=== PATIENT | female | born 1980 | race Caucasian/White ===

== ENCOUNTER 2022-07-22 10:34 | Inpatient (IN) ==
[2022-07-22] MEDS ORDERED: SODIUM CHLORIDE 0.9% 1,000 ML IV STA (11:35)
[2022-07-22 11:47] LABS: Basophils # 0.1 10*3/uL (0.0-0.2); Basophils % 0.4 % (0.0-0.8); Eosinophils # 0.1 10*3/uL (0.0-0.87); Eosinophils % 0.4 % (0.00-10.9); Hematocrit 52.9 VOL% (35.7-47.0); Hemoglobin 17.7 GM/DL (12.0-16.0); Immature Granulocytes % 0.6 %; Immature Granulocytes Absolute 0.09 #; Lymphocytes # 0.3 10*3/uL (1.4-4.0); Lymphocytes % 1.9 % (21.3-54.2); Mean Corpuscular HGB Conc 33.5 GM/DL (32-36); Mean Corpuscular Volume 88.9 FL (87-102); Mean Platelet Volume 10.3 FL (9.6-12.0); Monocytes # 1.1 10*3/uL (0.11-0.8); Neutrophils % 89.7 % (38.7-73.9); Platelet Count 369 T/CUMM (130-400); Red Blood Count 5.95 MC/CUMM (3.8-5.5); Red Cell Distribution Width 13.4 % (9.3-17.3); White Blood Count 16.08 T/CUMM (4-12)
[2022-07-22 11:55] LABS: Alanine Aminotransferase 22 U/L (13-56); Albumin 4.5 G/DL (3.4-5.0); Alkaline Phosphatase 104 U/L (45-117); Aspartate Amino Transferase 19 U/L (0-37); Blood Urea Nitrogen 32 MG/DL (7-18); Calcium 9.8 MG/DL (8.5-10.1); Carbon Dioxide 17 MMOL/L (21-32); Chloride 109 MMOL/L (98-107); Glucose 150 MG/DL (74-106); Osmolality,Calculated 282.8 MOS/KG (273-304); Potassium 4.7 MMOL/L (3.5-5.1); Sodium 137 MMOL/L (136-145); Total Protein 7.8 G/DL (6.4-8.2)
[2022-07-22] MEDS ORDERED: SODIUM CHLORIDE 0.9% 1,700 ML IV ONE (13:19)
[2022-07-22 13:41] LABS: Hyaline Casts,Urine 4 /LPF (0-3); Mucus,Urine Occasional /LPF (Occasional); RBC,Urine 1 /HPF (0-4)
[2022-07-22 13:44] LABS: Glucose,Urine (UA) Negative (Negative); Ketones,Urine Trace mg/dL (Negative); Protein,Urine 100 mg/dL (Negative); Urine Appearance Clear (Clear); Urine Color Dark Yellow (Yellow); Urine Specific Gravity > 1.030 (1.001-1.035); Urine pH 5.5 (4.5-8.0)
[2022-07-22 13:45] LABS: Bilirubin,Urine Moderate mg/dL (Negative); Blood, Urine Negative (Negative); Nitrite,Urine Negative (Negative); Urine Urobilinogen 0.2 eU/dL (<2.0)
[2022-07-22 14:57] LABS: Band Neutrophils 4 % (0-10); Lymphocytes 1 % (20-55); Nucleated Red Blood Cells 2 /100 WBC (0-5); Total Cells Counted 100
[2022-07-22 14:59] LABS: Platelet Estimate Normal
[2022-07-22] MEDS: PIPERACILLIN/TAZOBACTAM 3,375 MG in SODIUM CHLORIDE 0.9% 100 ML IV SCH (15:20)
[2022-07-22] MEDS ORDERED: ALBUTEROL/IPRATROPIUM 3 ML NEB RESP TX PRN (15:21)
[2022-07-22] MEDS ORDERED: ACETAMINOPHEN 325 MG TABLET PO PRN (15:21)
[2022-07-22] MEDS ORDERED: ONDANSETRON 4 MG/2 ML VIAL IV PRN (15:21)
[2022-07-22] MEDS ORDERED: hydrALAZINE 20 MG/1 ML VIAL IV PRN (15:21)
[2022-07-22] MEDS: PANTOPRAZOLE 40 MG VIAL IV SCH (15:40)
[2022-07-22] MEDS ORDERED: ENOXAPARIN 30 MG/0.3 ML SYRINGE SUBCUT SCH (16:00)
[2022-07-22] MEDS: TACROLIMUS 0.5 MG CAPSULE PO SCH (16:53)
[2022-07-22] MEDS: MYCOPHENOLATE MOFETIL 250 MG CAPSULE PO SCH (16:53)
[2022-07-22] MEDS: carvediloL 12.5 MG TABLET PO SCH (16:53)
[2022-07-22] MEDS: MAGNESIUM OXIDE 400 MG TABLET PO SCH (16:53)
[2022-07-22] MEDS: SODIUM BICARBONATE 650 MG TABLET PO SCH (16:53)
[2022-07-22] MEDS: SODIUM CHLORIDE 0.9% 1,000 ML IV SCH (16:54)
[2022-07-22 16:59] LABS: Hematocrit 46.5 VOL% (35.7-47.0); Hemoglobin 15.6 GM/DL (12.0-16.0)
[2022-07-23 01:32] LABS: Hemoglobin 14.3 GM/DL (12.0-16.0)
[2022-07-23] MEDS: PIPERACILLIN/TAZOBACTAM 3,375 MG in SODIUM CHLORIDE 0.9% 100 ML IV SCH ×2 (01:44→14:30)
[2022-07-23] MEDS: TACROLIMUS 0.5 MG CAPSULE PO SCH ×2 (04:59→17:12)
[2022-07-23] MEDS: SODIUM BICARBONATE 650 MG TABLET PO SCH ×2 (04:59→17:12)
[2022-07-23] MEDS: MAGNESIUM OXIDE 400 MG TABLET PO SCH ×2 (05:00→17:12)
[2022-07-23] MEDS: MYCOPHENOLATE MOFETIL 250 MG CAPSULE PO SCH ×2 (05:00→17:12)
[2022-07-23] MEDS: CINACALCET 30 MG TABLET PO SCH (05:00)
[2022-07-23] MEDS: CHOLECALCIFEROL 1,000 UNIT TABLET PO SCH (05:01)
[2022-07-23] MEDS: predniSONE 5 MG TABLET PO SCH (05:01)
[2022-07-23] MEDS: carvediloL 12.5 MG TABLET PO SCH ×2 (05:01→17:12)
[2022-07-23 05:25] LABS: Basophils % 0.3 % (0.0-0.8); Eosinophils # 0.1 10*3/uL (0.0-0.87); Hematocrit 40.9 VOL% (35.7-47.0); Hemoglobin 13.6 GM/DL (12.0-16.0); Immature Granulocytes % 0.3 %; Immature Granulocytes Absolute 0.02 #; Lymphocytes # 0.7 10*3/uL (1.4-4.0); Lymphocytes % 10.1 % (21.3-54.2); Mean Corpuscular HGB Conc 33.3 GM/DL (32-36); Mean Platelet Volume 10.1 FL (9.6-12.0); Monocytes # 0.6 10*3/uL (0.11-0.8); Monocytes % 8.4 % (1.7-12.7); Neutrophils % 79.9 % (38.7-73.9); Platelet Count 229 T/CUMM (130-400); Red Cell Distribution Width 13.2 % (9.3-17.3); White Blood Count 6.94 T/CUMM (4-12)
[2022-07-23 05:55] LABS: Calcium 8.5 MG/DL (8.5-10.1); Osmolality,Calculated 285.4 MOS/KG (273-304); Potassium 3.3 MMOL/L (3.5-5.1)
[2022-07-23 06:27] LABS: Albumin 3.1 G/DL (3.4-5.0); Bilirubin,Total 0.7 MG/DL (0.20-1.00); Calcium 8.8 MG/DL (8.5-10.1); Osmolality,Calculated 284.4 MOS/KG (273-304); Potassium 3.3 MMOL/L (3.5-5.1); Risk Ratio 3.02; Thyroid Stimulating Hormone 0.71 uIU/ml (0.358-3.74); Total Protein 6.1 G/DL (6.4-8.2); VLDL Cholesterol 27.6 MG/DL
[2022-07-23] MEDS ORDERED: MAGNESIUM SULF RIDER 4 GM/100 ML PREMIX IV PRN (07:42)
[2022-07-23] MEDS ORDERED: MAGNESIUM SULF RIDER 2 GM/50 ML PREMIX IV PRN (07:42)
[2022-07-23] MEDS ORDERED: PANTOPRAZOLE 40 MG TABLET PO SCH (09:00)
[2022-07-23] MEDS: PANTOPRAZOLE 40 MG VIAL IV SCH (10:23)
[2022-07-23] MEDS ORDERED: POTASSIUM CHLORIDE 20 MEQ TABLET PO ONE (11:02)
[2022-07-23] MEDS ORDERED: SODIUM BICARB INJ 50 MEQ in SODIUM CHLORIDE 0.45% 1,000 ML IV SCH (12:00)
[2022-07-23] MEDS: SODIUM CHLORIDE 0.9% 1,000 ML IV SCH (15:51)
[2022-07-23] MEDS ORDERED: SODIUM BICARB INJ 100 MEQ in SODIUM CHLORIDE 0.45% 1,000 ML IV SCH (16:00)
[2022-07-24] MEDS: PIPERACILLIN/TAZOBACTAM 3,375 MG in SODIUM CHLORIDE 0.9% 100 ML IV SCH (01:04)
[2022-07-24 05:11] LABS: Basophils % 0.3 % (0.0-0.8); Eosinophils # 0.3 10*3/uL (0.0-0.87); Eosinophils % 4.4 % (0.00-10.9); Hematocrit 35.4 VOL% (35.7-47.0); Hemoglobin 11.8 GM/DL (12.0-16.0); Immature Granulocytes % 0.5 %; Immature Granulocytes Absolute 0.03 #; Lymphocytes # 1.4 10*3/uL (1.4-4.0); Lymphocytes % 22.8 % (21.3-54.2); Mean Corpuscular HGB Conc 33.3 GM/DL (32-36); Mean Platelet Volume 10.7 FL (9.6-12.0); Monocytes # 0.7 10*3/uL (0.11-0.8); Monocytes % 10.5 % (1.7-12.7); Neutrophils % 61.5 % (38.7-73.9); Platelet Count 193 T/CUMM (130-400); Red Blood Count 4.07 MC/CUMM (3.8-5.5); Red Cell Distribution Width 13.2 % (9.3-17.3); White Blood Count 6.19 T/CUMM (4-12)
[2022-07-24] MEDS: SODIUM BICARBONATE 650 MG TABLET PO SCH (05:11)
[2022-07-24] MEDS: carvediloL 12.5 MG TABLET PO SCH (05:11)
[2022-07-24] MEDS: MAGNESIUM OXIDE 400 MG TABLET PO SCH (05:11)
[2022-07-24] MEDS: TACROLIMUS 0.5 MG CAPSULE PO SCH (05:11)
[2022-07-24] MEDS: MYCOPHENOLATE MOFETIL 250 MG CAPSULE PO SCH (05:11)
[2022-07-24] MEDS: CHOLECALCIFEROL 1,000 UNIT TABLET PO SCH (05:11)
[2022-07-24] MEDS: CINACALCET 30 MG TABLET PO SCH (05:12)
[2022-07-24] MEDS: predniSONE 5 MG TABLET PO SCH (05:12)
[2022-07-24 06:16] LABS: Calcium 8.4 MG/DL (8.5-10.1); Osmolality,Calculated 280.4 MOS/KG (273-304)
[2022-07-24] MEDS ORDERED: POTASSIUM CHLORIDE 20 MEQ TABLET PO ONE (07:27)
[2022-07-24] MEDS ORDERED: MAGNESIUM SULF RIDER 2 GM/50 ML PREMIX IV ONE (07:27)
[2022-07-24 09:09] VITALS: BP 149/79
[2022-07-24] MEDS: PANTOPRAZOLE 40 MG VIAL IV SCH (11:39)
[2022-07-26 10:36] LABS: Osmolality, Serum 293 mOsm/kg (275 - 295)
[2022-07-26 11:17] LABS: Osmolality, Urine 515 mOsm/kg (150 - 1150)
== END 2022-07-24 14:00 | disposition home or self-care (01) | DRG 683 ==
LOC: N.ED 10:34 → N.2E 15:22
PROVIDERS: ADMIT Internal Medicine; ATTEND Internal Medicine